=== PATIENT | female | born 1935 | race Two or more races ===

== ENCOUNTER 2021-04-22 21:36 | Emergency (ER) | payer OTHER ==
[~2021-04-22] VITALS: Ht 152.4 cm; Wt 59.0 kg
[2021-04-22] MEDS ORDERED: TIROSINT50 MCG (22:16)
[2021-04-22] MEDS ORDERED: TYLENOL ARTHRI650 MG (22:16)
[2021-04-22] MEDS ORDERED: SERTRALINE 50 MG (22:17)
[2021-04-22] MEDS ORDERED: TRAMADOL HCL50 MG (22:17)
[2021-04-22] MEDS ORDERED: VITAMIN C500 M6 (22:18)
[2021-04-22] MEDS ORDERED: CELEBREX200MG (22:19)
[2021-04-22] MEDS ORDERED: GABAPENTIN 400 MG (22:19)
[2021-04-22] MEDS ORDERED: MAGNESIUM500 MG (22:20)
[2021-04-22] MEDS ORDERED: LOSARTAN-HCTZ1 EAC1 (22:20)
[2021-04-22] MEDS ORDERED: AMLODIPINE 5 MG. (22:21)
[2021-04-22] MEDS ORDERED: CLEARLAX (22:22)
[2021-04-22] MEDS ORDERED: STOOL SOFTENER 100MG (22:23)
[2021-04-22] MEDS ORDERED: TRAZODONE HCL 100 MG (22:25)
[2021-04-22] MEDS ORDERED: ATORVASTATIN CA20 MG (22:25)
[2021-04-22] MEDS ORDERED: HYOSCYAMINE0.125 M2 (22:26)
[2021-04-23] MEDS ORDERED: LEVSIN/SL0.125 MG SL (06:21)
== END 2021-04-23 09:20 | disposition home or self-care (01) ==
LOC: ER 21:36
DX: R10.84 Generalized abdominal pain (principal); Z11.52 Encounter for screening for COVID-19